=== PATIENT | female | born 1985 | race Caucasian/White ===

== ENCOUNTER 2023-11-14 15:43 | Emergency (ER) | payer BC, SELFPAY ==
[2023-11-14 15:47] VITALS: BP 121/68; BMI 29.8
--- NOTE | 2023-11-14 16:04 | ED.GENMED ---
History of Present Illness
General
Chief Complaint: Fever
Source: patient
Time Seen by Provider: 11/14/23 15:56
Travel History
Have you had any contact with someone who has COVID-19?: No
Do you have any symptoms of coronavirus? Fever > 100 degrees, chills, cough, shortness of breath, sore throat, loss of taste or smell, muscle aches, or headache?: Yes
Symptoms:: fever
History of Present Illness
History of Present Illness:
38-year-old female presenting to the emergency department via EMS for fever since Wednesday, on Wednesday patient had some lower abdominal pain reminiscent of her typical pain from endometrial. This resolved within a few hours and was described to be
patients typical endometriosis type pain and noted to have started her menstrual period the same day. Patient states since that time though she has had fevers, chills, decreased p.o. intake to solids and liquids, today had some neck discomfort
prompting her to come to the emergency department. Patient states that she last took some Tylenol around 8 AM, Tmax of 102. Notes that she was recently in [place] but nobody else at home is sick with similar symptoms. She denies any nausea or
vomiting, bowel changes, urinary symptoms, current abdominal pain, chest pain, shortness of breath or any other concerns. Social history was noted for drinking 2 glasses of wine daily.
Past History
Past History
ED Past Medical History: Other (Endometriosis)
ED Past Surgical History: Gynecological (Ovarian cyst removal, fallopian tube removal) and Orthopedic (Collarbone surgery)
Social History
Tobacco: Non-smoker
Alcohol: Daily
Drug: Former user
Personal: Single
Living: other (with significant other)
Employment: Not employed
Review of Systems
Review of Systems
All Other Systems: ROS reviewed and negative except as documented in HPI and ROS
Phy Exam
Physical Exam
Physical Exam:
GENERAL: Alert , in no apparent distress
EYE: clear conjunctiva b/l
HEAD: NCAT
NECK: No meningismus, full range of motion. Mild tenderness within the distal cervical spine extending along the left lateral trapezius
ENT: o/p clr, mmm.
CARDIAC: Borderline tachycardic rate and rhythm, no murmur
LUNGS: Clear breath sounds bilaterally, no acute respiratory distress, no wheezes/rales/rhonchi
ABDOMEN: Soft, without focal tenderness, no r/g, no cvat
NEUROLOGICAL: Alert and oriented
SKIN: Warm and dry, skin intact.
MUSCULOSKELETAL: No edema, well perfused.
PSYCH: Normal and appropriate interaction.
Scores
Heart Failure Risk
Heart Failure Risk Score: Not Applicable
Heart Score for Chest Pain Patients
STEMI patient?: Not applicable
Withdrawal Assessment of Alcohol
Withdrawal Assessment Completed?: Not applicable
Course
Orders/Labs/Results
Orders:
Orders
11/14/23 16:03
Acetaminophen [Tylenol Suspension] 650 mg PO NOW STA
CR Chest - 2 Views Urgent
Comment:
Reason For Exam: fever
11/14/23 16:07
COVID-19 Antigen Urgent
Source: Nasal Swab
Complete Blood Count/With Diff Urgent
Comprehensive Metabolic Panel Urgent
Influenza A+B Rapid Molecular Urgent
CHE Source: Nasal Swab
Specimen Description:
11/14/23 17:09
Urinalysis Reflex To Culture Urgent
Date Specimen was Collected: 11/14/23
Time Specimen was Collected: 17:06
Abnormal Lab Results
11/14/23
16:07
WBC 4.3 L 10^3/uL
(4.8-10.8)
RBC 4.19 L 10^6/uL
(4.20-5.40)
Hgb 11.4 L g/dL
(12.0-16.0)
Hct 33.3 L %
(37.0-47.0)
MCV 79.5 L fL
(81.0-99.0)
RDW 14.9 H %
(11.5-14.5)
Absolute Lymphs (auto) 0.8 L 10^3/uL
(1.2-3.4)
Lymphocytes % 18.0 L %
(20.5-51.1)
Monocytes % 10.1 H %
(1.7-9.3)
Glucose 102 H mg/dl
(70-99)
11/14/23 16:07
11/14/23 16:07
Vital Signs
Initial and Last Documented VS:
Initial Vital Signs
Temp Pulse Resp BP Pulse Ox
101.1 F H 104 16 121/68 99
11/14/23 15:47 11/14/23 15:47 11/14/23 15:47 11/14/23 15:47 11/14/23 15:47
Last Documented Vital Signs
Temp Pulse Resp BP Pulse Ox
100.0 F 98 16 97/65 99
11/14/23 17:41 11/14/23 17:41 11/14/23 17:41 11/14/23 17:41 11/14/23 17:41
MDM/Problems Addressed
Differential Diagnosis Includes:
COVID, flu or other viral etiology, pneumonia, urinary tract infection, given the abdominal pain at onset possibility for urinary tract infection or other surgical complication such as appendicitis
MDM/Problems Addressed:
38-year-old female presenting emergency department for evaluation of fever. This is reportedly been since Wednesday after recently returning home from [place]. Patient is overall very well-appearing here. She does have a fever of 101. Has not taken
any antipyretics since 8 AM so will treat with Tylenol. Patient states she is unable to take pills due to esophageal stricture and is requesting liquid. Will check labs, urine, chest x-ray, COVID and flu. Will have a low threshold to order CT of
the abdomen and pelvis given the abdominal pain initially however given she is without any pain and has been for the last 4 days I am less suspicious for an acute surgical abdomen. Reassessment following
*Pulse Oximetry
Patient hypoxic: no
*Critical Care Note
Total Time (30-74mins, 75-104mins- exclusive of procedures): Not Applicable
Data Reviewed
Review of Other/Old Records Reveals: Labs and Records
Comment
Comment:
5:16 PM: Patients labs show a leukopenia but normal platelets and no evidence for pancytopenia. No left shift. Suspect viral etiology. Covid and flu negative. Pending CXR and UA
Patient Management
Escalation/DeEscalation of care consider admission/obs:
5:35 PM: Patient UA and CXR unremarkable. I rechecked patients oral temp and it is downtrending to 100.0. Patient is otherwise healthy, immunocompetent and in no acute distress. She feels comfortable being discharged home and will contact PCP for
follow up visit. Aware of return precautions to the ED. Continue tylenol prn for fever. Stable for d/c home.
ED Attending Note
-
Portions of this chart may have been created with voice recognition software.� Occasional wrong word or��sound alike� substitutions may have occurred due to the inherent limitations of voice recognition software.
Discharge Plan
Departure
Patient Disposition: Home (Routine Discharge)
Date of Disposition: 11/14/23
Time of Disposition: 17:31
Patient with high blood pressure during this ER visit?: No
Discharge Problem:
Fever
Instructions: Fever, Adult (DC)
Prescriptions:
No Action
No Current Medications
0
Referrals:
Carol Silverman NP [Family Provider] -
Stand Alone Forms: Return to Work
Activity Restrictions/Additional Instructions:
Return to ED with any worsening concerns, unresolved fevers, pain, or any other concerns you may have.
Interventions
Interventions:
*Risk Screen - Suicide Last Done: 11/14/23 15:51
*General Assessment Last Done: 11/14/23 15:51
*Neglect/Abuse Screening Last Done: 11/14/23 15:51
ED- Fall Risk Assessment Last Done: 11/14/23 17:42
*ED COVID-19 Vaccine History Last Done: 11/14/23 15:51
*Nursing Disposition Last Done: 11/14/23 17:42
ED- Neurological Assessment Last Done: 11/14/23 15:51
ED-Skin Assessment Last Done: 11/14/23 15:51
Discharge Date and Time
Discharge Date/Time: 11/14/23 18:17
Print Language: SPANISH
[2023-11-14] MEDS: TYLENOL SUSPENSION 650 MG PO (16:14)
[2023-11-14 16:15] LABS: % Basophils 0.7 % (0-2); % Eosinophils 0.5 % (0-6); % Immature Granulocytes 0.2 % (0-0.5); % Monocytes 10.1 % (1.7-9.3); % Neutrophils 70.5 % (42.2-75.2); Absolute Lymphocytes 0.8 10^3/uL (1.2-3.4); Absolute Monocytes 0.4 10^3/uL (0.1-0.6); Absolute Neutrophils 3.1 10^3/uL (1.4-6.5); Hematocrit 33.3 % (37.0-47.0); Hemoglobin 11.4 g/dL (12.0-16.0); Mean Corp Hgb Conc. 34.2 g/dL (33.0-37.0); Mean Corpuscular Hgb 27.2 pg (27.0-31.0); Mean Corpuscular Volume 79.5 fL (81.0-99.0); Mean Platelet Volume 9.7 fL (7.4-10.4); Nucleated Red Blood Cells % 0 %; Platelet Count 270 10^3/uL (130-400); Red Blood Cell Count 4.19 10^6/uL (4.20-5.40); Red Cell Dist. Width 14.9 % (11.5-14.5); White Blood Cell Count 4.3 10^3/uL (4.8-10.8)
[2023-11-14 16:32] LABS: COVID-19 Antigen Negative (Negative)
[2023-11-14 16:42] LABS: ALT (SGPT) 21 U/L (0-35); AST (SGOT) 29 U/L (14-36); Albumin 4.1 g/dl (3.5-5.0); Alkaline Phosphatase 74 U/L (38-126); Blood Urea Nitrogen 11 mg/dl (7-17); Calcium 8.8 mg/dl (8.4-10.2); Carbon Dioxide 23 mmol/L (22-30); Chloride 104 mmol/L (98-107); Estimated Creatinine Clearance 91 ml/min; Glucose 102 mg/dl (70-99); Potassium 3.9 mmol/L (3.5-5.1); Sodium 136 mmol/L (135-145); Total Bilirubin 0.3 mg/dl (0.2-1.3); Total Protein 6.6 g/dl (6.3-8.2); eGFR > 60.00
[2023-11-14 17:19] LABS: Urine Albumin Negative (Neg - Trace); Urine Bilirubin Negative (Negative); Urine Character Clear (Clear); Urine Color Yellow; Urine Glucose Negative (Negative); Urine Ketone Negative (Negative); Urine Leukocyte Negative (Negative); Urine Nitrite Negative (Negative); Urine Occult Blood Negative (Negative); Urine Urobilinogen Negative (Neg - 1+)
[2023-11-14 17:41] VITALS: BP 97/65
== END 2023-11-14 18:17 | disposition home or self-care (01) ==
LOC: EMR 15:43
PROVIDERS: Physician Assistant Medical; EMERGENCY PHYSICIAN Emergency Medicine; FAMILY PHYSICIAN Nurse Practitioner Family
DX: R50.9 Fever, unspecified (principal); Z98.890 Other specified postprocedural states
CPT/HCPCS: 99283; 71046; 80053; 81003; 85025; 87502; 87811

== ENCOUNTER → 2024-05-05 11:46 | Outpatient (REF) | payer BC, SELFPAY | LOC: WDC 11:46 | PROVIDERS: ATTENDING PHYSICIAN Nurse Practitioner Family | DX: Z12.31 Encounter for screening mammogram for malignant neoplasm of breast (principal) | CPT/HCPCS: 77063; 77067 ==